=== PATIENT | female | born 1995 | race Caucasian/White ===

== ENCOUNTER 2019-05-21 13:47 | Emergency (ER) | payer BC ==
[~2019-05-21] VITALS: Ht 170.2 cm; Wt 54.5 kg
[2019-05-21] MEDS ORDERED: LIDOCAINE 2% MDV 20 ML VIAL SC ONE (15:00)
[2019-05-21] MEDS ORDERED: ADACEL/BOOSTRIX VACCINE (DIPHTH/PERTUSS/ACELL/TETANUS)0.5ML SYR (90715) IM ONE (15:00)
[2019-05-21] MEDS ORDERED: DERMABOND TOPICAL SKIN ADHESIVE TOP ONE (15:15)
[2019-05-21 16:47] VITALS: BP 133/74
== END 2019-05-21 17:02 | disposition home or self-care (01) ==
LOC: M ED 13:47
DX: S61.112A Laceration without foreign body of left thumb with damage to nail, initial encounter (principal); W26.0XXA Contact with knife, initial encounter; Y92.099 Unspecified place in other non-institutional residence as the place of occurrence of the external cause; Y93.G1 Activity, food preparation and clean up; Y99.9 Unspecified external cause status

== ENCOUNTER → 2019-06-20 | Outpatient (REF) | payer BC ==
[2019-06-20 22:10] LABS: CHLAMYDIA DNA AMPLIFICATION NEGATIVE (NEGATIVE); GC DNA AMPLIFICATION NEGATIVE (NEGATIVE)
== END ==
LOC: M SFHCLERA 15:35
PROVIDERS: ATTEND Nurse Practitioner Family
DX: N89.8 Other specified noninflammatory disorders of vagina (principal)

== ENCOUNTER 2020-01-06 13:43 | Emergency (ER) | payer BC, OTHER ==
[~2020-01-06] VITALS: Ht 167.6 cm; Wt 61.4 kg
[2020-01-06] MEDS ORDERED: ONDANSETRON 4 MG ORAL DISINTEGRATING TAB PO ONE (14:15)
[2020-01-06] MEDS ORDERED: ACETAMINOPHEN 325 MG TAB PO ONE (14:15)
[2020-01-06] MEDS ORDERED: BACL10TA2 PO (15:18)
[2020-01-06 15:24] VITALS: BP 125/56
--- NOTE | 2020-01-06 22:59 | REP ---
CT BRAIN WITHOUT CONTRAST: CT brain performed without IV contrast. Coronal reconstruction images are performed. Ventricles are normal in size and position with no midline shift or mass effect. Almeida-white differentiation is well maintained. There is no acute intracranial hemorrhage. There is no extra-axial fluid collection. Bone window examination demonstrates no fracture. IMPRESSION: Essentially negative noncontrast CT brain. Electronically Signed by Michael Almeida MD 01/07/2020 04:51 P
--- NOTE | 2020-01-06 23:01 | REP ---
CT CERVICAL SPINE: CT cervical spine performed in the axial plane; sagittal and coronal reconstruction images are performed. There is no compression fracture or malalignment. There is no prevertebral soft tissue swelling. Disc spaces are well preserved. Spinal canal demonstrates no abnormal density. IMPRESSION: No fracture or dislocation. Electronically Signed by Michael Almeida MD 01/07/2020 04:51 P
== END 2020-01-06 15:25 | disposition home or self-care (01) ==
LOC: M ED 13:43
DX: S13.4XXA Sprain of ligaments of cervical spine, initial encounter (principal); S16.1XXA Strain of muscle, fascia and tendon at neck level, initial encounter; V43.52XA Car driver injured in collision with other type car in traffic accident, initial encounter; Y92.410 Unspecified street and highway as the place of occurrence of the external cause
CPT/HCPCS: 70450; 72125; 99283; Q0162